=== PATIENT | male | born 1965 | race African-American/Black ===

== ENCOUNTER 2017-01-14 07:47 | Day surgery (SDC) | payer OTHER ==
--- NOTE | 2017-01-14 09:25 | Operative Note ---
Upper GI Endoscopy Procedure date: 01/14/17 Date of : 67 Procedure:Upper GI Endoscopy Esophagogastroduodenoscopy with cold biopsies and TTS balloon dilation Indications: Mr. Barone is a 51-year-old gentleman who is here for diagnostic upper endoscopy. The patient has had a 15 pound unintentional weight loss over the last 3-4 months. He has had emesis of phlegm and coughing up phlegm. He also reports some loss of appetite/anorexia. He has occasional nausea. He also has intermittent epigastric/RIGHT upper quadrant abdominal pain. He did have a CAT scan of the abdomen and ultrasound which were essentially unremarkable and did not show any gallbladder disease. The patient does have some occasional belching. He reports no early satiety. He has regular bowel function. He has occasional reflux. Performing Provider: Obdulio Souza MD Referring Provider: Manuel Crisostomo M.D. Sedation: Fentanyl 100 mg IV/Versed 7 mg IV Procedure: Prior to the procedure, a history and physical exam was performed, and patients medications and allergies were reviewed. The risks and benefits of the procedure and the sedation options and risks were discussed with the patient. All questions were answered and informed consent was obtained. The patient was brought to the procedure room. Patient identification and proposed procedure were verified by the physician and the nurse. The patient was placed in a left lateral decubitus position and the scope was passed under direct vision. Throughout the procedure, the patient's blood pressure, pulse, and oxygen saturations were monitored continuously. The endoscope was introduced through the mouth, and advanced to the second part of duodenum. The upper GI endoscopy was accomplished without difficulty. The patient tolerated the procedure well. Findings: The scope was passed directly into the upper esophagus and advanced to the third portion of the duodenum. The post bulbar duodenum and duodenal bulb were mostly normal but there was very mild peptic duodenitis of the post bulbar duodenum and duodenal bulb. The scope was withdrawn through a normal pylorus into the stomach. There was bile reflux with linear erythema of the antrum and body with some erosions consistent with reactive gastritis/erosive gastritis. The remainder of the antrum, body and fundus of the stomach were grossly normal. Upon retroflexion there was a 2-3 cm sliding hiatal hernia. 2 biopsies were taken in the antrum and along the lesser curvature for histology. The scope was then withdrawn into the esophagus. There was grade A-B reflux esophagitis and a distal Schatzki's ring. This endoscopy is ring was dilated to 60 Romanian/20 mm with a TTS hydrostatic balloon. There was no evidence of Mills's esophagus. The remainder of the esophageal mucosa was normal. Immediate complications: None EBL (ml): 0 Impression: 1. Grade AB reflux esophagitis LA classification with small 2-3 cm sliding hiatal hernia 2. Schatzki's ring dilated to 20 mm 3. Bile reflux with linear erosive reactive gastritis 4. Mild peptic duodenitis Recommendations: I will place the patient on omeprazole. I would also recommend fiber bowel regimen and metoclopramide. I will follow up the biopsies. 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 at [id number]
[2017-01-14 15:13] VITALS: BP 131/89
== END 2017-01-14 10:25 | disposition home or self-care (01) ==
LOC: SDC 07:47
PROVIDERS: Internal Medicine Gastroenterology
PROC: 0D758ZZ Dilation of Esophagus, Via Natural or Artificial Opening Endoscopic (ICD-10-PCS; 2017-01-14)
PROC: 0DB78ZX Excision of Stomach, Pylorus, Via Natural or Artificial Opening Endoscopic, Diagnostic (ICD-10-PCS; principal; 2017-01-14 09:00)
DX: R63.4 Abnormal weight loss (principal); K22.2 Esophageal obstruction; K44.9 Diaphragmatic hernia without obstruction or gangrene; K21.0 Gastro-esophageal reflux disease with esophagitis; K29.80 Duodenitis without bleeding
CPT/HCPCS: C1726